=== PATIENT | male | born 1960 | race Caucasian/White ===

== ENCOUNTER 2025-03-04 00:21 | Day surgery (SDC) | payer OTHER, SELFPAY ==
[2025-02-23 13:48] VITALS: BMI 37.6
--- OUTSIDE RECORDS SUMMARY | 2025-03-04 00:23 | XMS_ITS | Continuity of Care Document ---
Author Organization [facility] Address [address] [place] [address] Phone Care Team Providers Care Net Web Application Developer Name Role Phone [facility] Unavailable Unavail able Ellen Chacon Unavailable Unavailable Procedures Procedure Date Frames Deluxe Progressive Lens, Plastic Polycarb Lens Per Lens Lens-Index>1.66Plas;>1.80Glas 0 Anti-reflective Coating Scratch Resistant Coating Eye Exam & Treatment Refraction Office/outpatient Visit, Est Eye Exam & Treatment Advance Directives Directive Yes / No Effective Date File Name No Information Encounters Encounter Description Practice Location Reason(s) For Visit Diagnoses Date Provider Providers Copied on Encounter [facility], [id number] [place] [address] [address], [place], [place], [id number], [place] tel:[phone] [facility] No Information 0 [facility]. [address], [address], [place], [id number], [place]. tel:[phone] Referring Provider: Martínez Dumont, [facility] [address], [address]. tel:[phone] baer Provider: Ellen Chacon, [address] [place], [address]. tel:[phone] [facility], [address] [place] [address] [address], [place], [id number], tel:[phone] [facility] No Information 8-201 0 Krishnasamy Martínez. [address] [place] [address], [facility], . tel:[phone] Referring Provider: Soy Castellanos MD, [address] [place] [address], [facility]. tel:[phone] Office/outpa tient Visit, Est [facility], [address] [place] [address], [place], [id number], [phone] [place] [address] No Information 0-200 9 Krishnasamy Martínez. [facility] [address], [facility], . tel:[phone] Referring Provider: Soy Castellanos MD, [address] [place] [address], [facility]. tel:[phone] [facility], [address] [place] [address] [address], [place], [place], [id number], [phone] [place] [address] No Information 1200 7 Micky[address]ulia Box. [address] [facility] [place], [id number], . tel:[phone] Referring Provider: Soy Castellanos MD, [address] [place] [address], [facility]. tel:[phone] Family History Family Member Type Diagnosis Age At Onset No Information Payers Payer name Insurance type Covered green party ID Authornirmalaa saloni(s) [employer] Plan CI [id number] Social History Type Description Quantity Date Captured Comments Sex Male Smoking Status No Information Chief Complaint And Reason For Visit No Information Reason For Referral Reason For Referral No Information History Of Present Illness Encounter Date Complaint History Of Prese nt Illness No Information Functional Status Date Functional Assessmen t No Information Instructions Date Instruction Additional Infor mation No Information Assessments Type Assessment Date No Information Patient Care Teams Name Effective Dates (start - stop) Status Members No Information
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
--- NOTE | 2025-03-04 09:04 | P.PNAN_ITS ---
Anes - Initial Pre Proc Eval Procedure: Operation Date: 03/04/25 10:30 Proposed Procedures p Screening Colonoscopy - Bryan Preston MD Date/Time: 03/04/25 09:04 Surgeon: Bryan Preston MD Pre Op Diagnosis: screening colon Patient Data Age: 64 Gender: M Height: 1.8 m Weight: 122.5 kg Allergies Allergy/AdvReac Type Severity Reaction Status Date / Time No Known Allergies Allergy Verified 02/23/25 13:46 Home Medications ?Medication ?Instructions ?Recorded ?Confirmed ?Type aspirin 81 mg tablet,delayed 81 mg PO DAILY 10/13/23 02/23/25 History release glucosamine-chondroitin 500 mg-400 1 cap PO BID #180 caps 10/13/23 02/23/25 Rx mg capsule wlhitqxvwbnb-njt-bukxs acid-vit 1 tablet PO DAILY 10/13/23 02/23/25 History K-lycop 400 mcg-20 mcg-370 mcg tablet (Men's 50 Plus Multivitamin) meloxicam 15 mg tablet 15 mg PO DAILY #90 tabs 12/28/24 02/23/25 Rx metformin 1,000 mg tablet 1,000 mg PO BID #180 tabs 12/28/24 02/23/25 Rx rosuvastatin 5 mg tablet 5 mg PO DAILY #90 tabs 12/28/24 02/23/25 Rx valsartan 160 mg tablet 160 mg PO DAILY #90 tabs 12/28/24 02/23/25 Rx dapagliflozin propanediol 10 mg 10 mg PO DAILY #90 tabs 12/29/24 02/23/25 Rx tablet (Farxiga) Patient hx anesthesia problems: none Family hx anesthesia problems: none Results Review: All pre-operative results and documents have been reviewed as part of the pre- operative evaluation. [facility] Past Medical History Medical History Microalbuminuria Morbid obesity Mixed hyperlipidemia Essential (primary) hypertension Type 2 diabetes mellitus with chronic kidney disease Social History Social History Smoking status: Never smoker Second hand tobacco smoke exposure: No Alcohol intake: current Drinks per week: 12 Substance use: never Substance use type: does not use Lack of Transportation: No Lack of Food: Never True Current Housing: I Have Housing Concerned About Future Housing: No Difficulty Paying Gas/Electric Bills: No Difficulty Paying for Meds: No Currently Unemployed: No Living arrangements: with roommate(s) Occupation/Education: occupation Gender identity (if verbalized by the patient): Male Anes - Evbaldemar Final PreProcedure Day of Procedure 03/04/25 09:04 Patient weight: obese Heart: regular rate and rhythm Lungs: clear to auscultation Airway: Mallampati scale class II Neurological: alert and oriented Last oral intake: >/= 8 hours ASA classification: III Emergent: no Anesthetic plan: proceed Anesthesia type and monitoring: general GIVS and standard monitoring Results Review: All pre-operative results and documents have been reviewed as part of the pre- operative evaluation. Informed Consent: The patient's anesthetic plan and its attendant risks and benefits were discussed with the patient/family/POA. Questions were solicited and answers provided to the satisfaction of the patient/family/POA.
--- NOTE | 2025-03-04 09:08 | PM.HPGS ---
History of Present Illness History of Present Illness Consent: Risks, benefits, and alternatives have been discussed and questions answered. Patient agrees to proceed with procedure. Chief complaint: screening colon Narrative: Abiodun Piper is a 64 year old male here for first screening colonoscopy Review of Systems Review of Systems: All systems reviewed & are unremarkable except as noted in HPI and below PMFSH Past Medical History Medical History (Updated 03/04/25 @ 09:09 by Bryan Preston MD) Colon cancer screening Microalbuminuria Morbid obesity Mixed hyperlipidemia Essential (primary) hypertension Type 2 diabetes mellitus with chronic kidney disease Social History Social History Smoking status: Never smoker Second hand tobacco smoke exposure: No Alcohol intake: current Drinks per week: 12 Substance use: never Substance use type: does not use Lack of Transportation: No Lack of Food: Never True Current Housing: I Have Housing Concerned About Future Housing: No Difficulty Paying Gas/Electric Bills: No Difficulty Paying for Meds: No Currently Unemployed: No Living arrangements: with roommate(s) Occupation/Education: occupation Gender identity (if verbalized by the patient): Male Meds Home Medications and Allergies Home Medications ?Medication ?Instructions ?Recorded ?Confirmed ?Type aspirin 81 mg tablet,delayed 81 mg PO DAILY 10/13/23 02/23/25 History release glucosamine-chondroitin 500 mg-400 1 cap PO BID #180 caps 10/13/23 02/23/25 Rx mg capsule kccoouophcjg-hyn-lfytr acid-vit 1 tablet PO DAILY 10/13/23 02/23/25 History K-lycop 400 mcg-20 mcg-370 mcg tablet (Men's 50 Plus Multivitamin) meloxicam 15 mg tablet 15 mg PO DAILY #90 tabs 12/28/24 02/23/25 Rx metformin 1,000 mg tablet 1,000 mg PO BID #180 tabs 12/28/24 02/23/25 Rx rosuvastatin 5 mg tablet 5 mg PO DAILY #90 tabs 12/28/24 02/23/25 Rx valsartan 160 mg tablet 160 mg PO DAILY #90 tabs 12/28/24 02/23/25 Rx dapagliflozin propanediol 10 mg 10 mg PO DAILY #90 tabs 12/29/24 02/23/25 Rx tablet (Farxiga) Allergies Allergy/AdvReac Type Severity Reaction Status Date / Time No Known Allergies Allergy Verified 03/04/25 09:09 Exam Const: General: comfortable and no acute distress HENMT: Face/Nose/Sinus: Normal nares present Eyes: General: appearance normal, both eyes and all related structures Neck: Neck: no JVD Resp: Auscultation: clear to auscultation bilaterally Cardio: Rate: regular rate Rhythm: regular rhythm GI: Inspection: non-distended GI Palp: Yes Soft to palpation Skin: General skin exam: normal color Neuro: General: gait normal Speech: normal speech Extrem: General: normal to inspection Psych: Mental Status: mental status grossly normal Assessment and Plan Assessment and plan (1) Colon cancer screening: Code(s): Z12.11 - Encounter for screening for malignant neoplasm of colon Status: Acute Assessment and Plan: colonoscopy
[2025-03-04 09:10] VITALS: BP 149/87; PULSE 86; RESP 22; TEMP 36.3; O2SAT 97; BMI 36.8
[2025-03-04 09:13] LABS: Glucose Point of Care 134 mg/dl (65-105)
[2025-03-04] MEDS: LACTATED RINGERS 1,000 ML 150 ML IV CONT (09:13)
--- NOTE | 2025-03-04 09:26 | SUR.OPER ---
Patient has a 22 right wrist. Current Iv occurrence was put in as an error.
[2025-03-04 09:32] VITALS: BP 119/74; PULSE 73; RESP 18; O2SAT 97
[2025-03-04 09:42] VITALS: BP 122/74; PULSE 86; RESP 18; O2SAT 95
[2025-03-04 09:52] VITALS: BP 117/75; PULSE 69; RESP 18; O2SAT 96
== END 2025-03-04 09:58 | disposition home or self-care (01) ==
PROVIDERS: PCP Family Medicine; Referring Provider Family Medicine; Visit Provider Internal Medicine Gastroenterology
PROC: 0DJD8ZZ Inspection of Lower Intestinal Tract, Via Natural or Artificial Opening Endoscopic (ICD-10-PCS; CPT 45378; principal; 2025-03-04 10:30)
DX: Z12.11 Encounter for screening for malignant neoplasm of colon (principal); D12.4 Benign neoplasm of descending colon; K64.8 Other hemorrhoids; K57.30 Diverticulosis of large intestine without perforation or abscess without bleeding; E78.2 Mixed hyperlipidemia; E11.22 Type 2 diabetes mellitus with diabetic chronic kidney disease; I12.9 Hypertensive chronic kidney disease with stage 1 through stage 4 chronic kidney disease, or unspecified chronic kidney disease; N18.9 Chronic kidney disease, unspecified; R80.9 Proteinuria, unspecified; E66.9 Obesity, unspecified; Z68.36 Body mass index [BMI] 36.0-36.9, adult; Z79.82 Long term (current) use of aspirin; Z79.84 Long term (current) use of oral hypoglycemic drugs
CPT/HCPCS: 45385; 82948; 88305; J2704; J7120